=== PATIENT | female | born 1990 | race Caucasian/White ===

== ENCOUNTER 2017-01-28 10:53 | Emergency (ER) | payer OTHER ==
[2017-01-28 11:18] VITALS: BP 121/79; PULSE 95; RESP 18; TEMP 98.8; O2SAT 98
--- NOTE | 2017-01-28 12:02 | UCPHY ---
H & P Time Seen by Provider: 01/28/17 11:18 Patient Type: New HPI/ROS: 26-year-old female presents complaining of sinus drainage, sore throat, cough. Review of systems As per HPI General positive fever positive chills no weakness HEENT no eye pain no eye discharge. No eye redness, positive sore throat Respiratory positive cough no shortness of breath Cardiac no chest pain, no peripheral edema GI no abdominal pain, no diarrhea, no constipation, no nausea, no vomiting no flank pain, no hematuria, no dysuria Musculoskeletal no myalgias, no joint pain Heme no easy bruising, no easy bleeding Endo no polyuria, no polydipsia Skin no rashes, no pruritus Neuro no syncope, no dizziness, no headaches Psych is no suicidal ideation, no homicidal ideation Past Medical/Surgical History: Noncontributory States she has strep throat frequently Social History: Denies excessive alcohol or drug use Smoking Status: Never smoked Physical Exam: A 26-year-old female Alert and oriented in no acute distress nontoxic appearance, afebrile Atraumatic normocephalic Extraocular muscles intact, anicteric Neck-supple, positive anterior cervical lymphadenopathy mildly tender to palpation Oropharynx positive enlarged tonsils, erythematous, no uvular deviation, no purulent exudate, tolerating own secretions, no trismus Lungs clear to auscultation bilaterally Heart regular rate and rhythm Abdomen normoactive bowel sounds soft nontender Extremities no cyanosis clubbing edema Skin no rash Constitutional: Initial Vital Signs Temperature (C) 37.1 C 01/28/17 11:08 Heart Rate 95 01/28/17 11:08 Respiratory Rate 18 01/28/17 11:08 Blood Pressure 121/79 H 01/28/17 11:08 O2 Sat (%) 98 01/28/17 11:08 O2 Delivery Mode Room Air Allergies/Adverse Reactions: codeine Allergy (Verified 01/28/17 11:07) Home Medications: Medication Instructions Recorded Amoxicillin/Clavulanate Pot 875 mg PO BID #14 tab 01/28/17 [Augmentin 875 MG TAB (*)] Medical Decision Making ED Course/Re-evaluation: Patient seen and evaluated for sore throat, nasal congestion postnasal drip, cough Rapid strep negative DNA strep positive Differential diagnosis considered URI, bronchitis, sinusitis, pharyngitis, viral syndrome Impression Sinusitis Acute pharyngitis Plan Augmentin Follow-up primary care physician Departure - Departure Disposition: Home, Routine, Self-Care Clinical Impression: Pharyngitis, Sinusitis Condition: Good Instructions: Pharyngitis (ED), Rhinosinusitis (ED) Referrals: NONE *PRIMARY CARE P,. [Primary Care Provider] - As per Instructions Stand Alone Forms: Work Excuse Prescriptions: Amoxicillin/Clavulanate Pot [Augmentin 875 MG TAB (*)] 875 mg PO BID #14 tab - PQRS PQRS Measurement: na
== END 2017-01-28 12:07 | disposition home or self-care (01) ==
LOC: CED 10:53
DX: J02.9 Acute pharyngitis, unspecified (principal); J01.90 Acute sinusitis, unspecified
CPT/HCPCS: 87880-PO; G0463-PO